=== PATIENT | female | born 1970 | race Caucasian/White ===

== ENCOUNTER 2017-11-22 22:20 | Emergency (ER) | payer OTHER ==
--- NOTE | 2017-11-22 22:39 | ED Physician Documentation ---
PD HPI ABD PAIN - Stated complaint Stated Complaint: ABD PX/VOMITING - Chief complaint Chief Complaint: Abd Pain - History obtained from History obtained from: Patient - History of Present Illness Timing - onset: How many hours ago (2) Timing - duration: Hours (2) Timing - details: Abrupt onset Pain level max: 6 Pain level now: 0 Quality: Pain Location: RUQ, Epigastric Improved by: Other (nothing) Worsened by: Other (no exacerbating factors) Associated symptoms: Nausea, Vomiting, Diarrhea, Other (diaphoresis) Similar symptoms before: Has not had sx before Recently seen: Not recently seen - Additional information Additional information: 2 hours EDUCATIONAL ASSISTANT, 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 pain waxes and wanes and at time of HPI she denies any pain Review of Systems Constitutional: reports: Sweats. denies: Fever, Chills Cardiac: reports: Reviewed and negative Respiratory: reports: Reviewed and negative GI: reports: Abdominal Pain, Nausea, Vomiting, Diarrhea : denies: Dysuria, Frequency Neurologic: denies: Generalized weakness, Focal weakness, Numbness PD PAST MEDICAL HISTORY - Past Medical History Past Medical History: Yes Cardiovascular: Hypertension Respiratory: Asthma Psych: Anxiety - Past Surgical History Past Surgical History: No - Present Medications Home Medications: Ambulatory Orders Medication Instructions Recorded Confirmed Escitalopram [Lexapro] 1 tab PO DAILY 11/22/17 11/22/17 Losartan Potassium 25 mg PO DAILY 11/22/17 11/22/17 Phentermine HCl 1 tab PO DAILY 11/22/17 11/22/17 Diphenoxylate/Atropine [Lomotil] 1 each PO QID PRN #14 tablet 11/23/17 Ondansetron Odt [Zofran] 4 mg TL Q6H PRN #10 tablet 11/23/17 - Allergies Allergies/Adverse Reactions: Allergies Allergy/AdvReac Type Severity Reaction Status Date / Time No Known Drug Allergies Allergy Verified 11/22/17 22:43 - Social History Does the pt smoke?: Yes Smoking Status: Current every day smoker Does the pt drink ETOH?: Yes Does the pt have substance abuse?: No - Immunizations Immunizations are current?: Yes - POLST Patient has POLST: No PD ED PE NORMAL - Vitals Vital signs reviewed: Yes - General General: Alert and oriented X 3, No acute distress, Well developed/nourished - HEENT HEENT: Moist mucous membranes - Neck Neck: Supple, no meningeal sign - Cardiac Cardiac: RRR, No murmur - Respiratory Respiratory: No respiratory distress, Clear bilaterally - Abdomen Abdomen: Soft, Non distended, Other (mild epigastric tenderness without rebound or guarding) - Back Back: No CVA TTP - Derm Derm: Normal color, Warm and dry - Extremities Extremities: No edema Results - Vitals Vitals: Vital Signs - 24 hr 11/22/17 11/22/17 11/22/17 22:20 22:51 23:02 Temperature 36.0 C L Heart Rate 110 H 98 94 Respiratory 18 13 16 Rate Blood Pressure 147/92 H 95/60 110/72 O2 Saturation 100 98 98 11/22/17 11/23/17 11/23/17 23:25 00:06 00:40 Temperature 36.4 C L 36.4 C L Heart Rate 100 101 H 98 Respiratory 15 12 18 Rate Blood Pressure 134/86 H 122/81 H 130/88 H O2 Saturation 100 99 99 Oxygen O2 Source Room air - EKG (time done) No standard instances Rate: Rate (enter#) (110) Rhythm: Sinus tachycardia [place]: RAD Intervals: Normal ID QRS: Normal Ischemia: Normal ST segments - Labs Labs: Microbiology 11/22/17 23:25 Campylobacter Antigen Assay - Final Stool 11/22/17 23:25 Clostridium difficile (PCR) - Final Stool Laboratory Tests 11/22/17 11/22/17 11/22/17 22:40 22:40 22:40 WBC 16.2 H RBC 5.01 Hgb 15.9 Hct 44.8 MCV 89.3 MCH 31.8 H MCHC 35.6 RDW 13.2 Plt Count 230 MPV 8.1 Neut # (Auto) 13.8 H Lymph # (Auto) 1.0 L [place] # (Auto) 1.4 H Eos # (Auto) 0.1 Baso # (Auto) 0.0 Absolute Nucleated RBC 0.00 Nucleated RBC % 0.0 Sodium 137 Potassium 3.8 Chloride 105 Carbon Dioxide 21 Anion Gap 11.0 BUN 14 Creatinine 0.7 Estimated GFR (MDRD) 90 Glucose 129 H Calcium 8.8 Total Bilirubin 0.7 AST 28 ALT 39 Alkaline Phosphatase 43 Troponin I < 0.04 Total Protein 7.5 Albumin 4.2 Globulin 3.3 Albumin/Globulin Ratio 1.3 Lipase 33 PD MEDICAL DECISION MAKING - ED course Complexity details: reviewed results, re-evaluated patient, considered differential, d/w patient Departure - Departure Disposition: 01 Home, Self Care Clinical Impression: Abdominal pain Qualifiers: Abdominal location: epigastric Qualified Code(s): R10.13 - Epigastric pain Diarrhea Qualifiers: Diarrhea type: unspecified type Qualified Code(s): R19.7 - Diarrhea, unspecified Vomiting Qualifiers: Vomiting type: unspecified Vomiting Intractability: non-intractable Nausea presence: with nausea Qualified Code(s): R11.2 - Nausea with vomiting, unspecified Condition: Good Instructions: ED Diet Vomiting Diarrhea, ED Vomiting Diarrhea Nonspecific Ad Prescriptions: Diphenoxylate/Atropine [Lomotil] 1 each PO QID PRN #14 tablet PRN Reason: Diarrhea Ondansetron Odt [Zofran] 4 mg TL Q6H PRN #10 tablet PRN Reason: Nausea / Vomiting Forms: Activity restrictions Discharge Date/Time: 11/23/17 00:45
[2017-11-22 22:46] LABS: BASOPHILS % (AUTO) 0.1 %; EOSINOPHILS # (AUTO) 0.1 10^3/uL (0.0-0.7); EOSINOPHILS % (AUTO) 0.6 %; HGB - HEMOGLOBIN 15.9 g/dL (12.0-16.0); MEAN CORPUSCULAR HEMOGLOBIN 31.8 pg (27.0-31.0); MEAN CORPUSCULAR HGB CONC 35.6 g/dL (32.0-36.0); MEAN CORPUSCULAR VOLUME 89.3 fL (81.0-99.0); MEAN PLATELET VOLUME 8.1 fL (7.9-10.8); MONOCYTES # (AUTO) 1.4 10^3/uL (0.0-1.0); MONOCYTES % (AUTO) 8.6 %; NEUTROPHILS # (AUTO) 13.8 10^3/uL (1.5-6.6); NEUTROPHILS % (AUTO) 84.7 %; PLT - PLATELET COUNT 230 10^3/uL (130-450); RED BLOOD COUNT 5.01 10^6/uL (4.20-5.40); RED CELL DISTRIBUTION WIDTH 13.2 % (12.0-15.0); WHITE BLOOD COUNT 16.2 x10^3/uL (4.8-10.8)
[2017-11-22] MEDS ORDERED: ONDANSETRON 4 MG/2 ML VIAL ONE (22:54)
[2017-11-22] MEDS ORDERED: SODIUM CHLORIDE 0.9% 1,000 ML IV STA (22:59)
[2017-11-22] MEDS ORDERED: ONDANSETRON 4 MG/2 ML VIAL IVP STA (22:59)
[2017-11-22 23:01] LABS: ALBUMIN 4.2 g/dL (3.2-5.5); ALBUMIN/GLOBULIN RATIO 1.3 (1.0-2.2); BILIRUBIN,TOTAL 0.7 mg/dL (0.2-1.0); CALCIUM 8.8 mg/dL (8.5-10.3); CREATININE 0.7 mg/dL (0.4-1.0); TOTAL PROTEIN 7.5 g/dL (6.7-8.2)
[2017-11-23] MEDS ORDERED: DIPHENOX/ATROPINE 2.5/0.025 MG TABLET PO STA (00:33)
[2017-11-23] MEDS ORDERED: ONDANSETRON ODT 4 MG Prepack 2 TL STA (00:36)
[2017-11-23 00:46] VITALS: BP 130/88
== END 2017-11-23 00:45 | disposition home or self-care (01) ==
LOC: ED 22:20
DX: R10.13 Epigastric pain (principal); R19.7 Diarrhea, unspecified; I10 Essential (primary) hypertension; R11.2 Nausea with vomiting, unspecified; F17.200 Nicotine dependence, unspecified, uncomplicated
CPT/HCPCS: 36415; 80053; 83690; 84484; 85025; 87045; 87046; 87493; 93005; 96374; 99283; 99284; A9270